=== PATIENT | female | born 1950 | race Hispanic/Latino ===

== ENCOUNTER 2019-03-12 07:22 | Day surgery (SDC) | payer MEDICARE ==
[2019-03-10 14:55] VITALS: BP 103/55
[2019-03-10 15:04] LABS: BASOPHILS % (AUTO) 0.3 % (0.0-5.0); EOSINOPHILS % (AUTO) 2.4 % (0.0-8.0); HEMATOCRIT 35.8 % (36-48); MEAN CORPUSCULAR HEMOGLOBIN 29.1 pg (27.0-33.0); MEAN CORPUSCULAR HGB CONC 31.3 g/dL (32.0-36.0); MONOCYTES % (AUTO) 6.2 % (3.0-13.0); NEUTROPHILS % (AUTO) 61.8 % (40.0-77.0); PLATELET COUNT (AUTO) 173 K/uL (130-400); RED BLOOD CELL COUNT(AUTO) 3.85 MIL/uL (4.00-5.50); RED CELL DISTRIBUTION WIDTH 14.6 % (11.0-15.5); WHITE BLOOD COUNT (AUTO) 6.1 K/uL (4.8-10.8)
[2019-03-10 15:05] LABS: CREATININE 1.3 mg/dL (0.5-1.5); POTASSIUM 4.4 mmol/L (3.5-5.1)
[2019-03-10 15:07] LABS: APPEARANCE,URINE Turbid (CLEAR); BILIRUBIN,URINE Negative (NEGATIVE); COLOR,URINE Yellow (YELLOW); GLUCOSE, URINE (UA) Negative (NEGATIVE); KETONES,URINE Negative (NEGATIVE); LEUKOCYTE ESTERASE ,URINE Large (NEGATIVE); NITRATE,URINE Negative (NEGATIVE); OCCULT BLOOD,URINE Large (NEGATIVE); PH,URINE 8.5 (5.0-8.0); PROTEIN,URINE POS 2+ mg/dL (NEGATIVE); UROBILINOGEN,URINE 0.2 mg/dL (0.2-1.0)
[2019-03-10 15:42] LABS: INR 0.97 (0.85-1.15); PARTIAL THROMBOPLASTIN TIME 35.8 SEC (26.3-35.5); PROTHROMBIN TIME 10.2 SEC (9.6-11.6)
[2019-03-10 15:43] LABS: BACTERIA,URINE Many /HPF (None Seen); SQUAMOUS EPITHELIAL CELL,UR None Seen /HPF (0-2); WBC,URINE TNTC /HPF (0-1)
--- NOTE | 2019-03-11 10:42 | NUR ---
RE: ABNORMAL LABS REPORTED BUN 28, CREAT 1.[address] ELIZONDO. REPORTED ABNORMAL URINALYSIS TO DR ELIZONDO WELL. NO NEW ORDERS, PER DR ELIZONDO HE WILL ORDER ANTIBIOTICS AFTER PROCEDURE IS COMPLETE.
--- NOTE | 2019-03-11 11:05 | NUR ---
CALLED [facility] AND SPOKE WITH CECILIA ESPOSITO. DAY PATIENT PRE-PROCEDURE INSTRUCTIONS FAXED TO NURSE.
[~2019-03-12] VITALS: Ht 152.4 cm; Wt 49.9 kg
[2019-03-12] VITALS (10 sets, daily range): BP systolic 108–156; BP diastolic 41–73
[~2019-03-12 07:22] MED LIST: ACET325T51 PO; AMLO10TA7 PO; APIX5TAB PO; ATOR40TA71 PO; FLUO20CA30 PO; HYDR-4153 PO; LAMO25TA66 PO; LINA5TAB PO; LISI-613 PO; METF-444 PO; NEBI5TAB8 PO; OLAN5TAB27 PO; SODIUM CHLORIDE 0.9% 500ML 500 ML IV SCH; TRAM-355 PO; TRAZ-187 PO; [UNRECOGNIZED DRUG - SUPPLY] TP
[2019-03-12] MEDS ORDERED: NITROGLYCERIN 5 MG/ML 10 ML VIAL IV ONE (08:11)
[2019-03-12] MEDS ORDERED: LIDOCAINE HCL 2% 20ML ONE (08:11)
[2019-03-12] MEDS ORDERED: IODIXANOL 320 MG/ML 100 ML VIAL ONE ×2 (08:12→08:23)
[2019-03-12] MEDS ORDERED: HEPARIN SODIUM 1000UNIT/ML 10ML VIAL ONE (08:12)
[2019-03-12] MEDS ORDERED: MIDAZOLAM HCL 1 MG/ML 2ML VIAL ONE (08:12)
[2019-03-12] MEDS ORDERED: FENTANYL CITRATE PF 50 MCG/1 ML 2ML VIAL ONE (08:13)
--- NOTE | 2019-03-12 08:20 | NUR ---
PT NOTED WITH LEFT HEEL STAGE III PRESSURE ULCER.
[2019-03-12] MEDS ORDERED: SODIUM CHLORIDE 0.9% 1000ML 1,000 ML IV ONE (08:29)
[2019-03-12] MEDS ORDERED: NICARDIPINE HCL 25 MG/10 ML ML IV ONE (10:12)
[2019-03-12] MEDS ORDERED: HYDRALAZINE HCL 20 MG/ML VIAL ONE (11:14)
--- NOTE | 2019-03-12 13:33 | NUR ---
gave report to Emy Rowe RN, no concerns
--- NOTE | 2019-03-12 13:34 | NUR ---
REPORT RECEIVED REPORT BY Armando ELIAS RN. PT LYING IN BED. SITE TO RIGHT GROIN SOFT TO TOUCH. NO BLEEDING, OOZING NOTED TO SITE. RE-INSTRUCTED PT ON IMPORTANCE OF NOT MOVING RIGHT LEG AND NOT LIFTING HEAD UP OFF OF BED. CALL LIGHT WITHIN REACH. SON NOT IN ROOM. ALL SIDE RAILS X4 UP.
--- NOTE | 2019-03-12 16:20 | NUR ---
DISCHARGE PT DISCHARGED VIA WHEELCHAIR WITH NEYDA, STAFF FROM [facility]. PT STABLE. NOT IN ANY APPARENT DISTRESS. CATH SITE TO RIGHT GROIN REMAINS SOFT, DRESSING DRY AND INTACT. BILATERAL LOWER EXTREMITIES NO CHANGES NOTED. REPORT GIVEN TO JOSEP CERVANTES LVN FROM [facility]. VERBALIZED UNDERSTANDING. ALSO DEMONSTRATED TO NEYDA, ON HOW TO MONITOR HER SITE FOR BLEEDING, AWARE TO APPLY PRESSURE AND CALL 911 IF BLEEDING, HEMATOMA OCCURS.
== END 2019-03-12 16:20 ==
LOC: DAH 07:22
PROVIDERS: ATTEND Internal Medicine Cardiovascular Disease
DX: I70.212 Atherosclerosis of native arteries of extremities with intermittent claudication, left leg (principal); I10 Essential (primary) hypertension; E78.5 Hyperlipidemia, unspecified; E11.621 Type 2 diabetes mellitus with foot ulcer; L97.519 Non-pressure chronic ulcer of other part of right foot with unspecified severity; F31.89 Other bipolar disorder; Z79.899 Other long term (current) drug therapy; Z79.01 Long term (current) use of anticoagulants; Z90.49 Acquired absence of other specified parts of digestive tract; Z87.891 Personal history of nicotine dependence; Z86.73 Personal history of transient ischemic attack (TIA), and cerebral infarction without residual deficits; Z83.3 Family history of diabetes mellitus
CPT/HCPCS: 36415; 37225; 37229; 71045; 75625; 75710; 80048; 81001; 82948 ×2; 85025; 85610; 85730; 93005; A4215; A4216; A4222; A4223 ×3; A4606; A4663; C1760; C1769 ×2; C1884; C1887; C1893; C1894 ×2; C2623 ×3; J0360; J1644 ×3; J2250; J3010; J3490 ×3; J7030; Q9967; 37228; 99156; 99157